=== PATIENT | female | born 1935 | race Caucasian/White ===

== ENCOUNTER 2017-02-18 23:15 | Emergency (ER) | payer MEDICARE, OTHER ==
[~2017-02-18 23:15] MED LIST: ACETAMINOPHEN325 MG PO; ASPIR 8181 MG PO; CALCIUM500 M1 PO; LOPRESSOR50 MG PO; PRAVACHOL40 MG PO; XARELTO20 MG PO
== END 2017-02-19 05:34 | disposition short-term general hospital (02) ==
LOC: ER 23:15
DX: K85.90 Acute pancreatitis without necrosis or infection, unspecified (principal); I48.91 Unspecified atrial fibrillation; I10 Essential (primary) hypertension; I25.2 Old myocardial infarction
CPT/HCPCS: 36415; 96365; 96375; Q9967

== ENCOUNTER 2017-03-24 11:57 | Observation (INO) | payer MEDICARE, OTHER ==
[~2017-03-24] VITALS: Ht 162.6 cm; Wt 69.2 kg
[2017-03-25] MEDS ORDERED: ELIQUIS5 MG PO (13:08)
[2017-03-25] MEDS ORDERED: COREG6.25 MG PO (13:09)
[2017-03-25] MEDS ORDERED: LISINOPRIL10 MG PO (13:09)
[2017-03-25] MEDS ORDERED: ASPIR 8181 MG PO (13:09)
[2017-03-25] MEDS ORDERED: HYDROCODON-ACE1 EAC4 PO (13:18)
== END 2017-03-25 11:24 | disposition home or self-care (01) ==
LOC: SDC 11:57 → MED 16:29 → ICU 16:29 → SDC 16:46 → ICU 17:23
PROVIDERS: ADMIT Surgery
DX: D13.5 Benign neoplasm of extrahepatic bile ducts (principal); K80.12 Calculus of gallbladder with acute and chronic cholecystitis without obstruction; I10 Essential (primary) hypertension; I25.2 Old myocardial infarction; J44.9 Chronic obstructive pulmonary disease, unspecified; G43.909 Migraine, unspecified, not intractable, without status migrainosus; M19.90 Unspecified osteoarthritis, unspecified site; F41.9 Anxiety disorder, unspecified; F32.9 Major depressive disorder, single episode, unspecified; F17.210 Nicotine dependence, cigarettes, uncomplicated; Z79.01 Long term (current) use of anticoagulants; Z79.899 Other long term (current) drug therapy
CPT/HCPCS: 96374; 96375; 96376; C1894; G0378; J0360; J1885; J2704; Q9967